=== PATIENT | female | born 1945 | race Caucasian/White ===

== ENCOUNTER 2017-03-05 11:46 | Inpatient (IN) | payer OTHER ==
[2017-02-20 21:19] LABS: INTERNATIONAL NORMAL RATI 1.1 UNITS (-); PROTIME (NOT ORD) 14.4 SEC (12.0-14.5)
[2017-02-20 21:21] LABS: BASOPHILS 1.8 %; BASOPHILS ABSOLUTE 0.18 10/3/uL (0.0-0.16); EOSINOPHILS 2.4 %; EOSINOPHILS ABSOLUTE 0.24 10/3/uL (0.0-0.53); HEMOGLOBIN 13.3 g/dL (12.0-16.0); IMMATURE GRANULOCYTES 0.1 %; IMMATURE GRANULOCYTES ABSOLUTE 0.01 10/3/uL (0.0-0.11); LYMPHOCYTES 19.8 %; LYMPHOCYTES ABSOLUTE 1.96 10/3/uL (0.67-4.30); MEAN CORPUS HGB CONC 30.9 g/dL (32.0-36.0); MEAN CORPUSCULAR HEMOGLOB 24.1 pg (26.0-34.0); MEAN CORPUSCULAR VOLUME 78.2 fL (80-100); MEAN PLATELET VOLUME 11.4 fL (9.2-13.0); MONOCYTES 7.3 %; MONOCYTES ABSOLUTE 0.72 10/3/uL (0.21-1.20); NEUTROPHILS 68.6 %; NEUTROPHILS ABSOLUTE 6.81 10/3/uL (2.02-8.40); RBC DISTRIBUTION WIDTH 17.5 % (12.0-16.0); RED CELL COUNT 5.51 10/6/uL (4.0-5.6); WHITE BLOOD CELLS 9.9 10/3/uL (4.5-10.5)
[2017-02-20 21:26] LABS: HEMATOCRIT 43.1 % (36.0-48.0); MANUAL DIFF NO %; PLATELET COUNT 405 10/3/uL (150-400)
[2017-02-20 21:36] LABS: ASCORBIC ACID (UR NOT ORDER) NEG (NEG); BILIRUBIN, URINE NEGATIVE (NEG); KETONE, URINE NEGATIVE (NEG); LEUKOCYTE ESTERASE(NOT OR MOD (NEG); WBC (NOT ORDERED) (RFLEX) 6 (0-5)
[2017-02-20 21:58] LABS: ALKALINE PHOSPHATASE 101 U/L (45-117); CALCIUM, SERUM 9.5 MG/DL (8.5-10.4); CHLORIDE, SERUM 102 MMOL/L (96-112); CO2 (CARBON DIOXIDE) 27 MMOL/L (24-34); CREATININE 0.99 MG/DL (0.55-1.02); GFR AFRICAN AMERICAN 66 ML/MIN (>=60); GFR NON AFRICAN AMERICAN 57 ML/MIN (>=60); GLOBULIN 3.9 G/DL (2.5-4.1); GLUCOSE, SERUM 88 MG/DL (60-99); POTASSIUM, SERUM 4.2 MMOL/L (3.5-5.3); SGOT(AST) 23 U/L (5-40); SGPT(ALT) 16 U/L (5-65); SODIUM, SERUM 141 MMOL/L (135-148); TOTAL BILIRUBIN 0.8 MG/DL (0-1.2); TOTAL PROTEIN 7.9 G/DL (6.0-8.5)
[2017-02-20 21:59] LABS: BUN (BLOOD UREA NITROGEN) 18 MG/DL (6-23)
--- NOTE | ~2017-03-05 | OP ---
Record Of Operation [facility] [address] [place]. [address] NAME: KLARISSA ANDRADE : 45 STATUS : ADM IN 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 PROCEDURE: Right total knee revision arthroplasty. SURGEON: Rashad Leslie M.D. HOT DIE PRESS FEEDER: See chart. DESCRIPTION OF PROCEDURE: The patient was taken to the operating room and placed supine on the table in normal fashion without incident. General anesthetic was induced per the anesthesiologist. The patient was carefully positioned, padded, prepped, draped in normal sterile fashion. Right lower extremity was exsanguinated and tourniquet inflated to 350. Sharp dissection was made through the old incision with electrocautery through the fat. Sharp quad splitting approach was carried out. The patella was subluxed. Benign-appearing fluid was sent for cultures and Gram stain. Near complete synovectomy was performed. The tibial insert was easily removed. Femoral and tibial components were removed with flexible and regular osteotomes and impactors. There was severe osteolysis in the lateral femoral condyle. Sequential reamers were used to a 20 in the femur and an 18 in the tibia. Intramedullary guides were used to cut the proximal tibia and distal femur. Ruler was used to verify flexion and extension balance. The remaining cuts were made on the distal femur with intramedullary guides. The previous component had been significantly oversized. With trial components in place, there was excellent medial and lateral balance and excellent flexion and extension balance. The patella was practically off the patellar bone. The component only had about one-third contact in the superomedial aspect of the patella with the rest of the patella with bone exposed. This was easily removed, recut with an oscillating saw, and drilled with the patella drill guide. With the trial patella in place, there was excellent patellar tracking. The soft tissue and bony damage required significant reconstruction. All surfaces were copiously irrigated with pulsatile lavage. Vacuum-mixed cement premixed with antibiotic was pressurized in a doughy phase in the tibia. Tibial component was placed, impacted, and excess cement removed. Cement was pressurized in the femur and placed on the posterior runners of the femoral component, which was placed, impacted, and excess cement removed. The knee was brought out in extension on a trial spacer. Cement was pressurized in the patella. The patellar component was placed, held with a clamp, and excess cement removed. Once all cement was hardened, the knee was taken through range of motion. Further extruded cement was removed with a small osteotome. The actual insert was placed, impacted, checked to be sure it was sound and snug. The knee was closed in a layered fashion over a medium ConstaVac drain. The wound was dressed sterilely. The patient was awakened taken to the postanesthesia care unit without incident. COMPLICATIONS: None. Record Of Operation [address] [place]. [address] NAME: KLARISSA ANDRADE : 45 STATUS : ADM IN [facility]#: [id number] AGE: 71 ADM/REG DATE : 03/05/17 MR#: [id number] REPORT SERV DATE: 03/05/17 DICTATED BY: CARISSA LESLIE DATE: 03/05/17 REPORT STATUS : Draft TRANSCRIBED BY: DONA DATE: 03/05/17 SPECIMENS: None. BLOOD LOSS: Trace. GUILLERMOB/DONA Rashad Leslie M.D. / [id number] CC: Rashad Leslie M.D.
--- NOTE | ~2017-03-05 | DS ---
Discharge Summary [facility] [address] [facility] [place]. [address] NAME: KLARISSA ANDRADE : 45 STATUS : DIS IN PAT#: [id number] AGE: 71 ADM/REG DATE : 03/05/17 MR#: [id number] REPORT SERV DATE: 03/19/17 DICTATED BY: CARISSA LESLIE DATE: 03/18/17 REPORT STATUS : Draft TRANSCRIBED BY: MODLuther DATE: 03/18/17 Data Collection from hospitalization DISCHARGE DIAGNOSES: 1. 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 2. Osteoarthritis. 3. Depression. 4. Multiple sclerosis. 5. Dementia. 6. Alzheimer's. 7. Gastroesophageal reflux disease. CONSULTATIONS: None. PROCEDURES PERFORMED: Right total knee revision arthroplasty on 03/05/2017. PATHOLOGY: Bone and soft tissue, right knee, excision - reactive changes and mild papillary synovial hyperplasia. Bone marrow with maturing trilinear hematopoiesis. Orthopedic hardware, removal - gross diagnosis. MEDICATIONS: Namenda 10 mg twice a day, Nexium 40 mg in the a.m. as instructed, Coumadin as instructed, Mylanta 30 mL as needed, Dulcolax 10-15 mg orally or rectally as needed, milk of magnesia 30 mL as needed, Zofran 4 mg every four hours as needed, MiraLAX powder one packet twice a day as needed, and hydrocodone 5/325 one to two tablets every four to six hours as needed for pain. CONDITION AT DISCHARGE: Stable. DISPOSITION: The patient was discharged to [facility] on a regular diet with activities as instructed. She would follow up with me on 03/19/2017. HOSPITAL COURSE: This is a 71-year-old female who has been seen in the clinic with complaints of minor to moderate intermittent bilateral knee pain, right greater than left. The date of onset for the right knee was about six months and for the left knee was two to three years. The patient does have multiple sclerosis. X-rays had shown failed right total knee arthroplasty, done by another surgeon. Treatment options were discussed and it was elected to proceed with surgical intervention. She was admitted to the hospital at this time for further evaluation and treatment. Upon admission, she was taken to the operating room where she underwent the above-mentioned procedure. She tolerated this well, and there were no complications. On postop day #1, she was evaluated by Occupational and Physical Therapy. She was in no acute distress. She was doing well. She was up sitting in a bedside chair. JAZMIN hose were in place. Over the next couple of days, she continued to do well. She was wanting to go home instead of a assisted facility. We encouraged her to mobilize with therapy. Prozac was continued as well as Protonix, Namenda, and Aricept. Discharge planning was performed. On 03/08/2017, she was participating with Physical Therapy. She was barely ambulatory. She said her legs felt weaker. JAZMIN hose were in place. Discharge instructions were given. Due to her improved Discharge Summary [address] [place]. [address] NAME: KLARISSA ANDRADE : 45 STATUS : DIS IN PAT#: [id number] AGE: 71 ADM/REG DATE : 03/05/17 MR#: [id number] REPORT SERV DATE: 03/19/17 DICTATED BY: CARISSA LESLIE DATE: 03/18/17 REPORT STATUS : Draft TRANSCRIBED BY: DONA DATE: 03/18/17 and stable condition, she was discharged to [facility] with the above-stated instructions. Information collected by: Kat Oshea I submit the above information as my discharge summary. DAKOTAH/DONA Rashad Leslie M.D. / [id number] CC: Matthew Rice TYLER KEITH [facility]
[~2017-03-05 11:46] MED LIST: ARICEPT10 PO; COPAXONE SC; DCN100 PO; L20 PO; LORTAB 5 PO; NAMENDA10 MG PO; NEUR600 PO; NEXIUM40 PO; PROZAC PO; PROZAC40 MG PO; RE DUALVI1 PO
[2017-03-06 04:44] LABS: INTERNATIONAL NORMAL RATI 1.1 UNITS (-); PROTIME (NOT ORD) 14.1 SEC (12.0-14.5)
[2017-03-06 04:49] LABS: HEMATOCRIT 33.8 % (36.0-48.0); HEMOGLOBIN 10.6 g/dL (12.0-16.0)
[2017-03-06 04:56] LABS: CHLORIDE, SERUM 108 MMOL/L (96-112); CO2 (CARBON DIOXIDE) 25 MMOL/L (24-34); CREATININE 0.94 MG/DL (0.55-1.02); GFR AFRICAN AMERICAN 71 ML/MIN (>=60); GFR NON AFRICAN AMERICAN 61 ML/MIN (>=60); POTASSIUM, SERUM 4.3 MMOL/L (3.5-5.3); SODIUM, SERUM 145 MMOL/L (135-148)
[2017-03-06 05:00] LABS: BUN (BLOOD UREA NITROGEN) 11 MG/DL (6-23); CALCIUM, SERUM 7.7 MG/DL (8.5-10.4); GLUCOSE, SERUM 108 MG/DL (60-99)
[2017-03-07 03:46] LABS: HEMOGLOBIN 9.2 g/dL (12.0-16.0)
[2017-03-07 03:48] LABS: HEMATOCRIT 28.9 % (36.0-48.0)
[2017-03-07 03:54] LABS: INTERNATIONAL NORMAL RATI 1.8 UNITS (-); PROTIME (NOT ORD) 20.7 SEC (12.0-14.5)
[2017-03-08 05:22] LABS: HEMATOCRIT 27.6 % (36.0-48.0); HEMOGLOBIN 9.1 g/dL (12.0-16.0)
[2017-03-08 05:26] LABS: INTERNATIONAL NORMAL RATI 2.3 UNITS (-)
[2017-03-08 05:35] LABS: PROTIME (NOT ORD) 25.1 SEC (12.0-14.5)
== END 2017-03-08 17:04 | DRG 468 ==
LOC: SDC/OF 11:46 → 3SO 20:54
PROVIDERS: Specialist
PROC: 0SPC0JZ Removal of Synthetic Substitute from Right Knee Joint, Open Approach (ICD-10-PCS; 2017-03-05)
PROC: 0SRC0J9 Replacement of Right Knee Joint with Synthetic Substitute, Cemented, Open Approach (ICD-10-PCS; principal; 2017-03-05 13:30)
DX: T84.092A Other mechanical complication of internal right knee prosthesis, initial encounter (principal); G35 Multiple sclerosis; G30.9 Alzheimer's disease, unspecified; F02.80 Dementia in other diseases classified elsewhere, unspecified severity, without behavioral disturbance, psychotic disturbance, mood disturbance, and anxiety; K21.9 Gastro-esophageal reflux disease without esophagitis; F32.9 Major depressive disorder, single episode, unspecified
CPT/HCPCS: 36415; 71020-PO; 80048; 80053; 81001; 82962; 85014; 85018; 85025; 85610; 86850; 86900; 86901; 87015; 87070; 87075; 87077; 87086; 87102; 87116; 87186; 87205; 87641; 88300; 88304; 88311; 93005; 97110-GP; 97116-GP; 97162-GP; 97166-GO; A9270-GY; C1776; J0360; J0690; J1580; J1885; J2250; J2270; J2274; J2405; J2710; J2795; J3010